=== PATIENT | male | born 1945 ===

== ENCOUNTER 2023-08-02 16:13 | Inpatient (IN) | payer MEDICAID ==
[~2023-08-02] VITALS: Ht 193 cm; Wt 74.8 kg
[2023-08-02] MEDS ORDERED: IV NORMAL SALINE 1000 ML BAG IV ONE (16:30)
[2023-08-02] MEDS ORDERED: VANCOMYCIN IV 1,000 MG in IV DEXTROSE 5% 250 ML IV ONE (16:30)
[2023-08-02] MEDS ORDERED: PIPERACILLIN SODIUM/TAZOBACTAM 3.375 G in IV DEXTROSE 5% 50 ML IV ONE (16:30)
[2023-08-02 16:56] LABS: BASOPHILS % (AUTO) 0.7 % (0.0-2.0); EOSINOPHILS % (AUTO) 0.3 % (0.0-7.0); HEMATOCRIT 44.2 % (36.7-47.1); HEMOGLOBIN 14.1 g/dL (12.5-16.3); LYMPHOCYTES # (AUTO) 1.1 K/uL (0.8-4.8); LYMPHOCYTES % (AUTO) 22.1 % (20.5-51.5); MEAN CORPUSCULAR HEMOGLOBIN 28.2 uug (23.8-33.4); MEAN CORPUSCULAR HGB CONC 32 g/dL (32.5-36.3); MEAN CORPUSCULAR VOLUME 88.5 fL (73.0-96.2); MONOCYTES # (AUTO) 0.5 K/uL (0.1-1.30); MONOCYTES % (AUTO) 9.4 % (0.0-11.0); NEUTROPHILS # (AUTO) 3.3 K/uL (1.8-8.9); NEUTROPHILS % (AUTO) 67.5 % (38.5-71.5); PLATELET COUNT (AUTO) 99 K/uL (152-348); RED CELL DISTRIBUTION WIDTH 18.7 % (12.1-16.2); WHITE BLOOD COUNT (AUTO) 4.9 K/uL (3.6-10.2)
[2023-08-02 16:59] LABS: DIFFERENTIAL COMMENT 1
[2023-08-02] MEDS ORDERED: VANCOMYCIN IV 200 ML ONE (17:00)
[2023-08-02] MEDS ORDERED: PIPERACILLIN/TAZOBACTAM/D5W 50 ML IV ONE (17:00)
[2023-08-02 17:12] LABS: ALANINE AMINOTRANSFERASE 113 U/L (16-63); ALKALINE PHOSPHATASE 105 U/L (50-136); ASPARTATE AMINOTRANSFERASE 117 U/L (15-37); BILIRUBIN,DIRECT 1.4 mg/dL (0.0-0.2); BILIRUBIN,TOTAL 3.7 mg/dL (0.2-1.0); CALCIUM 9.4 mg/dL (8.5-10.1); CARBON DIOXIDE 24 mmol/L (21-32); CHLORIDE 103 mmol/L (98-107); CREATININE 1.7 mg/dL (0.6-1.3); GLUCOSE 102 mg/dL (74-106); POTASSIUM 4.1 mmol/L (3.5-5.1); SODIUM SERUM 138 mmol/L (136-145); UREA NITROGEN, BLOOD 48 mg/dL (7-18)
[2023-08-02 17:24] LABS: LACTIC ACID 2.8 mmol/L (0.4-2.0)
[2023-08-02] MEDS ORDERED: METOPROLOL TARTRATE 5 MG/5 ML VIAL IVP PRN (17:45)
[2023-08-02] MEDS ORDERED: ASPIRIN 81 MG TAB.CHEW PO ONE (18:00)
[2023-08-02] MEDS ORDERED: METOPROLOL TARTRATE 5 MG/5 ML VIAL IVP ONE (18:06)
[2023-08-02] MEDS ORDERED: ACETAMINOPHEN 325 MG TABLET PO PRN (21:30)
[2023-08-02] MEDS ORDERED: ONDANSETRON 4 MG/2 ML VIAL IV PRN (21:30)
[2023-08-02] MEDS ORDERED: VANCOMYCIN IV 500 MG in IV DEXTROSE 5% 100 ML IV ONE (21:45)
[2023-08-02 22:00] VITALS: BP 130/89; TEMP 96.8; O2SAT 97
[2023-08-02] MEDS: MORPHINE SULFATE 2 MG/1 ML DISP.SYRIN IV PRN (22:53)
[2023-08-02] MEDS ORDERED: VANCOMYCIN HCL 500 MG VIAL ONE (23:08)
[2023-08-03] MEDS ORDERED: PIPERACILLIN/TAZOBACTAM/D5W 50 ML ONE ×2 (00:50→00:51)
[2023-08-03] MEDS: PIPERACILLIN/TAZO 2.25 G in IV DEXTROSE 5% 50 ML IV SCH ×5 (00:55→23:03)
[2023-08-03 02:27] VITALS: BP 142/97; TEMP 96.7; O2SAT 95
[2023-08-03 04:00] VITALS: BP 142/94; TEMP 97.5; O2SAT 95
[2023-08-03 06:08] LABS: BASOPHILS % (AUTO) 0.7 % (0.0-2.0); EOSINOPHILS % (AUTO) 0.1 % (0.0-7.0); HEMATOCRIT 45.4 % (36.7-47.1); HEMOGLOBIN 14.8 g/dL (12.5-16.3); LYMPHOCYTES # (AUTO) 1.4 K/uL (0.8-4.8); LYMPHOCYTES % (AUTO) 25.8 % (20.5-51.5); MEAN CORPUSCULAR HGB CONC 33 g/dL (32.5-36.3); MEAN CORPUSCULAR VOLUME 88.5 fL (73.0-96.2); MONOCYTES # (AUTO) 0.6 K/uL (0.1-1.30); MONOCYTES % (AUTO) 11.9 % (0.0-11.0); NEUTROPHILS # (AUTO) 3.2 K/uL (1.8-8.9); NEUTROPHILS % (AUTO) 61.5 % (38.5-71.5); PLATELET COUNT (AUTO) 101 K/uL (152-348); RED BLOOD CELL COUNT(AUTO) 5.12 MIL/uL (4.06-5.63); RED CELL DISTRIBUTION WIDTH 18.8 % (12.1-16.2); WHITE BLOOD COUNT (AUTO) 5.3 K/uL (3.6-10.2)
[2023-08-03 06:22] LABS: DIFFERENTIAL COMMENT 1
[2023-08-03] MEDS: PANTOPRAZOLE SODIUM 40 MG TABLET.DR PO SCH (06:25)
[2023-08-03 06:32] LABS: IRON, SERUM 28 ug/dL (50-175)
[2023-08-03 06:34] LABS: ALANINE AMINOTRANSFERASE 144 U/L (16-63); ALBUMIN 3.2 g/dL (3.4-5.0); ALKALINE PHOSPHATASE 125 U/L (50-136); ASPARTATE AMINOTRANSFERASE 150 U/L (15-37); BILIRUBIN,TOTAL 3.3 mg/dL (0.2-1.0); CALCIUM 8.9 mg/dL (8.5-10.1); CARBON DIOXIDE 23 mmol/L (21-32); CHLORIDE 103 mmol/L (98-107); CHOLESTEROL 197 mg/dL (<200); CREATININE 1.7 mg/dL (0.6-1.3); GLUCOSE 114 mg/dL (74-106); HDL CHOLESTEROL 66 mg/dL (40-60); MAGNESIUM 2.3 mg/dL (1.8-2.4); PHOSPHOROUS 4.3 mg/dL (2.5-4.9); POTASSIUM 4.1 mmol/L (3.5-5.1); SODIUM SERUM 140 mmol/L (136-145); TOTAL PROTEIN, SERUM 7.6 g/dL (6.4-8.2); TRIGLYCERIDES 73 MG/DL (30-150); UREA NITROGEN, BLOOD 49 mg/dL (7-18)
[2023-08-03] MEDS ORDERED: HEPARIN SODIUM,PORCINE 5,000 UNITS/ML VIAL SQ SCH (09:00)
[2023-08-03] MEDS ORDERED: FUROSEMIDE 20 MG/2 ML VIAL IV SCH (09:00)
[2023-08-03] MEDS ORDERED: AMIODARONE HCL IV 150 MG in IV DEXTROSE 5% 100 ML IV ONE (09:00)
[2023-08-03] MEDS ORDERED: HEPARIN/D5W DRIP 500 ML IV PRN (09:00)
[2023-08-03] MEDS ORDERED: AMIODARONE HCL IV 450 MG in IV DEXTROSE 5% 250 ML IV PRN (09:00)
[2023-08-03] MEDS ORDERED: ASPIRIN EC 81 MG TABLET.DR PO SCH (09:00)
[2023-08-03 09:41] LABS: ABG BASE EXCESS -1.9 mmol/L; ABG HCO3 21.7 mmol/L; ABG PCO2 33.6 mmHg (35.0-45.0); ABG PH 7.427 (7.350-7.450); ABG PO2 62.5 mmHg (75.0-100.0); ABG SITE RIGHT RADIAL; COHb 1.1 % (0.5-1.5); MetHb 0.3 % (0.0-1.5); O2Hb 90.4 % (94.0-97.0)
[2023-08-03] MEDS: METOPROLOL TARTRATE 50 MG TABLET PO SCH ×2 (10:21→20:23)
[2023-08-03] MEDS: VANCOMYCIN IV 1,250 MG in IV DEXTROSE 5% 250 ML IV SCH (11:33)
[2023-08-03 12:00] VITALS: BP 103/74; TEMP 98; O2SAT 98
[2023-08-03] MEDS: FUROSEMIDE 20 MG/2 ML VIAL IV SCH ×2 (13:51→21:44)
[2023-08-03 16:00] VITALS: O2SAT 98
[2023-08-03 16:01] VITALS: BP 109/89; TEMP 98.4; O2SAT 100
[2023-08-03 20:00] VITALS: BP 101/75; TEMP 97.9; O2SAT 99
[2023-08-03] MEDS: DOCUSATE SODIUM 100 MG CAPSULE PO SCH (20:28)
[2023-08-03] MEDS ORDERED: DOCUSATE SODIUM 250 MG CAPSULE PO SCH (21:00)
[2023-08-03 22:23] LABS: *BILIRUBIN,URIN NEGATIVE (NEGATIVE); *BLOOD, URINE 1+ (NEGATIVE); *CLARITY,URINE CLEAR (CLEAR); *COLOR,URINE YELLOW (YELLOW); *KETONES,URINE NEGATIVE (NEGATIVE); *PROTEIN,URINE 2+ (NEGATIVE); *UROBILINOGEN,URINE 0.2 E.U./dl (NORMAL); LEUKOCYTE ESTERASE ,URINE NEGATIVE (NEGATIVE); NITRITE, URINE NEGATIVE (NEGATIVE); UGLUCOSE NEGATIVE (NEGATIVE)
[2023-08-03 22:55] LABS: WBC,URINE NONE SEEN /HPF (0-3)
[2023-08-03 22:56] LABS: BACTERIA,URINE NONE SEEN /HPF (NONE SEEN); SQUAMOUS EPITHELIAL CELL,UR NONE SEEN /HPF (NONE SEEN)
[2023-08-03 23:28] LABS: *CREATININE,URINE 58.4 mg/dL (30-125); *URINE TOTAL PROTEIN RANDOM 69.7 mg/dL (<150/24HR)
[2023-08-04] MEDS: MORPHINE SULFATE 2 MG/1 ML DISP.SYRIN IV PRN (00:59)
[2023-08-04 03:55] VITALS: O2SAT 99
[2023-08-04 04:00] VITALS: BP 110/78; TEMP 97.9; O2SAT 98
[2023-08-04] MEDS: PIPERACILLIN/TAZO 2.25 G in IV DEXTROSE 5% 50 ML IV SCH (05:41)
[2023-08-04] MEDS: FUROSEMIDE 20 MG/2 ML VIAL IV SCH ×3 (06:06→22:31)
[2023-08-04] MEDS: VANCOMYCIN IV 1,250 MG in IV DEXTROSE 5% 250 ML IV SCH (06:18)
[2023-08-04] MEDS: PANTOPRAZOLE SODIUM 40 MG TABLET.DR PO SCH (07:02)
[2023-08-04 07:27] LABS: BASOPHILS % (AUTO) 0.6 % (0.0-2.0); HEMATOCRIT 43.3 % (36.7-47.1); LYMPHOCYTES # (AUTO) 0.9 K/uL (0.8-4.8); LYMPHOCYTES % (AUTO) 18.3 % (20.5-51.5); MEAN CORPUSCULAR HEMOGLOBIN 28.7 uug (23.8-33.4); MEAN CORPUSCULAR HGB CONC 32 g/dL (32.5-36.3); MEAN CORPUSCULAR VOLUME 89.1 fL (73.0-96.2); MONOCYTES # (AUTO) 0.5 K/uL (0.1-1.30); MONOCYTES % (AUTO) 10.4 % (0.0-11.0); NEUTROPHILS # (AUTO) 3.6 K/uL (1.8-8.9); NEUTROPHILS % (AUTO) 70.7 % (38.5-71.5); PLATELET COUNT (AUTO) 86 K/uL (152-348); RED BLOOD CELL COUNT(AUTO) 4.86 MIL/uL (4.06-5.63); RED CELL DISTRIBUTION WIDTH 18.7 % (12.1-16.2); WHITE BLOOD COUNT (AUTO) 5.1 K/uL (3.6-10.2)
[2023-08-04 07:42] LABS: DIFFERENTIAL COMMENT 1
[2023-08-04 07:48] LABS: ALANINE AMINOTRANSFERASE 153 U/L (16-63); ALBUMIN 2.6 g/dL (3.4-5.0); ALKALINE PHOSPHATASE 90 U/L (50-136); ASPARTATE AMINOTRANSFERASE 152 U/L (15-37); BILIRUBIN,TOTAL 2.5 mg/dL (0.2-1.0); CALCIUM 8.6 mg/dL (8.5-10.1); CARBON DIOXIDE 25 mmol/L (21-32); CHLORIDE 104 mmol/L (98-107); CREATINE KINASE, TOTAL 96 U/L (39-308); CREATININE 1.9 mg/dL (0.6-1.3); GLUCOSE 81 mg/dL (74-106); MAGNESIUM 2.3 mg/dL (1.8-2.4); POTASSIUM 4.4 mmol/L (3.5-5.1); SODIUM SERUM 139 mmol/L (136-145); TOTAL PROTEIN, SERUM 6.6 g/dL (6.4-8.2); UREA NITROGEN, BLOOD 54 mg/dL (7-18)
[2023-08-04 08:00] VITALS: BP 119/89; TEMP 97.6; O2SAT 99
[2023-08-04] MEDS ORDERED: ASPIRIN EC 81 MG TABLET.DR PO SCH (09:00)
[2023-08-04] MEDS: METOPROLOL SUCCINATE XL 50 MG TAB.SR.24H PO SCH ×2 (09:05→21:33)
[2023-08-04] MEDS: MUPIROCIN 2% OINT 22 GM TUBE TP SCH (09:06)
[2023-08-04] MEDS: SODIUM HYPOCHLORITE 0.125% (QUARTER STRENGTH) 473 ML BOTTLE TP SCH (09:06)
[2023-08-04 11:30] VITALS: BP 107/84; TEMP 97.4; O2SAT 98
[2023-08-04] MEDS: CEFEPIME HCL 2 G in IV DEXTROSE 5% 100 ML IV SCH (12:44)
[2023-08-04] MEDS: HYDROCODONE/APAP 5-325MG TABLET PO PRN (13:34)
[2023-08-04 16:23] VITALS: BP 99/78; TEMP 97.6; O2SAT 94
[2023-08-04 20:00] VITALS: BP 128/82; TEMP 97.7; O2SAT 95
[2023-08-04] MEDS: DOCUSATE SODIUM 100 MG CAPSULE PO SCH (21:29)
[2023-08-04] MEDS: MUPIROCIN 2% OINT 22 GM TUBE NS SCH (21:52)
[2023-08-05] VITALS: BP 119/95; TEMP 97.5; O2SAT 96
[2023-08-05] MEDS: CEFEPIME HCL 2 G in IV DEXTROSE 5% 100 ML IV SCH ×3 (00:08→23:01)
[2023-08-05] MEDS: VANCOMYCIN IV 1,250 MG in IV DEXTROSE 5% 250 ML IV SCH (05:46)
[2023-08-05] MEDS: PANTOPRAZOLE SODIUM 40 MG TABLET.DR PO SCH (06:17)
[2023-08-05 07:13] LABS: BASOPHILS % (AUTO) 0.3 % (0.0-2.0); EOSINOPHILS % (AUTO) 0.1 % (0.0-7.0); HEMATOCRIT 40.6 % (36.7-47.1); HEMOGLOBIN 13.3 g/dL (12.5-16.3); LYMPHOCYTES # (AUTO) 0.7 K/uL (0.8-4.8); LYMPHOCYTES % (AUTO) 14.8 % (20.5-51.5); MEAN CORPUSCULAR HEMOGLOBIN 28.7 uug (23.8-33.4); MEAN CORPUSCULAR HGB CONC 33 g/dL (32.5-36.3); MEAN CORPUSCULAR VOLUME 87.8 fL (73.0-96.2); MONOCYTES # (AUTO) 0.6 K/uL (0.1-1.30); MONOCYTES % (AUTO) 12.9 % (0.0-11.0); NEUTROPHILS # (AUTO) 3.4 K/uL (1.8-8.9); NEUTROPHILS % (AUTO) 71.9 % (38.5-71.5); PLATELET COUNT (AUTO) 97 K/uL (152-348); RED BLOOD CELL COUNT(AUTO) 4.62 MIL/uL (4.06-5.63); RED CELL DISTRIBUTION WIDTH 18.7 % (12.1-16.2); WHITE BLOOD COUNT (AUTO) 4.7 K/uL (3.6-10.2)
[2023-08-05 07:16] LABS: CALCIUM 8.2 mg/dL (8.5-10.1); CARBON DIOXIDE 29 mmol/L (21-32); CHLORIDE 103 mmol/L (98-107); CREATININE 1.8 mg/dL (0.6-1.3); GLUCOSE 113 mg/dL (74-106); MAGNESIUM 1.9 mg/dL (1.8-2.4); PHOSPHOROUS 3.5 mg/dL (2.5-4.9); POTASSIUM 3.4 mmol/L (3.5-5.1); SODIUM SERUM 141 mmol/L (136-145); UREA NITROGEN, BLOOD 49 mg/dL (7-18)
[2023-08-05 07:22] LABS: DIFFERENTIAL COMMENT 1
[2023-08-05] MEDS: FUROSEMIDE 20 MG/2 ML VIAL IV SCH ×3 (07:29→22:49)
[2023-08-05 07:51] VITALS: BP 119/78; TEMP 98.2; O2SAT 93
[2023-08-05 08:06] LABS: A/G RATIO 0.9 (0.7-1.7); ALBUMIN 3.1 g/dL (2.9-4.4); ALPHA-1-GLOBULIN 0.3 g/dL (0.0-0.4); ALPHA-2-GLOBULIN 0.6 g/dL (0.4-1.0); BETA GLOBULIN 1.2 g/dL (0.7-1.3); GAMMA GLOBULIN 1.5 g/dL (0.4-1.8); GLOBULIN, TOTAL 3.5 g/dL (2.2-3.9); M-SPIKE 0.3 g/dL (Not Observed)
[2023-08-05] MEDS: MUPIROCIN 2% OINT 22 GM TUBE NS SCH ×2 (08:25→20:47)
[2023-08-05] MEDS: METOPROLOL SUCCINATE XL 50 MG TAB.SR.24H PO SCH ×2 (08:25→20:37)
[2023-08-05] MEDS: SODIUM HYPOCHLORITE 0.125% (QUARTER STRENGTH) 473 ML BOTTLE TP SCH (08:26)
[2023-08-05] MEDS: HYDROCODONE/APAP 5-325MG TABLET PO PRN (08:26)
[2023-08-05] MEDS: MUPIROCIN 2% OINT 22 GM TUBE TP SCH (08:26)
[2023-08-05] MEDS ORDERED: POTASSIUM CHLORIDE 20 MEQ POWDER PACKET GT ONE (08:45)
[2023-08-05] MEDS ORDERED: POTASSIUM CHLORIDE 20 MEQ TAB.PRT.SR PO ONE (09:00)
[2023-08-05] MEDS: APIXABAN 2.5 MG TABLET PO SCH ×2 (09:23→20:37)
[2023-08-05 11:34] VITALS: BP 115/95; TEMP 97.7; O2SAT 92
[2023-08-05 16:00] VITALS: BP 110/86; TEMP 97.4; O2SAT 94
[2023-08-05] MEDS ORDERED: SWABABLE VALVE TRANSFER SET EA MC ONE (16:52)
[2023-08-05] MEDS ORDERED: IOHEXOL 350 100 ML INFUS..BTL ONE (16:52)
[2023-08-05] MEDS ORDERED: IV NORMAL SALINE 250 ML IV ONE (16:53)
[2023-08-05] MEDS: DOCUSATE SODIUM 100 MG CAPSULE PO SCH (20:36)
[2023-08-05 22:11] VITALS: BP 109/86; TEMP 97.4; O2SAT 98
[2023-08-06 00:23] VITALS: TEMP 95.6
[2023-08-06 04:00] VITALS: TEMP 96.4
[2023-08-06] MEDS: VANCOMYCIN IV 1,250 MG in IV DEXTROSE 5% 250 ML IV SCH (05:34)
[2023-08-06] MEDS: FUROSEMIDE 20 MG/2 ML VIAL IV SCH ×3 (06:11→22:41)
[2023-08-06] MEDS: PANTOPRAZOLE SODIUM 40 MG TABLET.DR PO SCH (06:11)
[2023-08-06 07:08] LABS: BASOPHILS % (AUTO) 0.4 % (0.0-2.0); HEMATOCRIT 41.4 % (36.7-47.1); HEMOGLOBIN 13.5 g/dL (12.5-16.3); LYMPHOCYTES # (AUTO) 0.8 K/uL (0.8-4.8); LYMPHOCYTES % (AUTO) 17.6 % (20.5-51.5); MEAN CORPUSCULAR HEMOGLOBIN 28.7 uug (23.8-33.4); MEAN CORPUSCULAR HGB CONC 33 g/dL (32.5-36.3); MEAN CORPUSCULAR VOLUME 87.8 fL (73.0-96.2); MONOCYTES # (AUTO) 0.6 K/uL (0.1-1.30); MONOCYTES % (AUTO) 13.2 % (0.0-11.0); NEUTROPHILS # (AUTO) 3.2 K/uL (1.8-8.9); NEUTROPHILS % (AUTO) 68.8 % (38.5-71.5); PLATELET COUNT (AUTO) 115 K/uL (152-348); RED BLOOD CELL COUNT(AUTO) 4.72 MIL/uL (4.06-5.63); RED CELL DISTRIBUTION WIDTH 18.6 % (12.1-16.2); WHITE BLOOD COUNT (AUTO) 4.6 K/uL (3.6-10.2)
[2023-08-06 07:14] LABS: DIFFERENTIAL COMMENT 1
[2023-08-06] MEDS: APIXABAN 2.5 MG TABLET PO SCH ×3 (09:00→21:23)
[2023-08-06] MEDS: METOPROLOL SUCCINATE XL 50 MG TAB.SR.24H PO SCH ×2 (10:01→21:21)
[2023-08-06] MEDS: MUPIROCIN 2% OINT 22 GM TUBE NS SCH ×2 (10:01→21:19)
[2023-08-06] MEDS: MUPIROCIN 2% OINT 22 GM TUBE TP SCH (10:17)
[2023-08-06] MEDS: SODIUM HYPOCHLORITE 0.125% (QUARTER STRENGTH) 473 ML BOTTLE TP SCH (10:44)
[2023-08-06 11:24] VITALS: BP 101/66; TEMP 97.9; O2SAT 96
[2023-08-06] MEDS: CEFEPIME HCL 2 G in IV DEXTROSE 5% 100 ML IV SCH ×2 (12:01→23:02)
[2023-08-06 16:00] VITALS: BP 105/73; TEMP 97.7; O2SAT 95
[2023-08-06 20:30] VITALS: BP 111/73; TEMP 97.5; O2SAT 94
[2023-08-06] MEDS: DOCUSATE SODIUM 100 MG CAPSULE PO SCH (21:20)
[2023-08-07] VITALS: BP 115/90; TEMP 97.6; O2SAT 99
[2023-08-07] MEDS: FUROSEMIDE 20 MG/2 ML VIAL IV SCH (05:36)
[2023-08-07 06:03] LABS: BASOPHILS % (AUTO) 0.4 % (0.0-2.0); EOSINOPHILS % (AUTO) 0.4 % (0.0-7.0); HEMATOCRIT 44.1 % (36.7-47.1); HEMOGLOBIN 14.6 g/dL (12.5-16.3); LYMPHOCYTES # (AUTO) 0.8 K/uL (0.8-4.8); LYMPHOCYTES % (AUTO) 18.4 % (20.5-51.5); MEAN CORPUSCULAR HEMOGLOBIN 29.2 uug (23.8-33.4); MEAN CORPUSCULAR HGB CONC 33 g/dL (32.5-36.3); MEAN CORPUSCULAR VOLUME 88.1 fL (73.0-96.2); MONOCYTES # (AUTO) 0.5 K/uL (0.1-1.30); MONOCYTES % (AUTO) 12.6 % (0.0-11.0); NEUTROPHILS # (AUTO) 2.8 K/uL (1.8-8.9); NEUTROPHILS % (AUTO) 68.2 % (38.5-71.5); PLATELET COUNT (AUTO) 150 K/uL (152-348); RED BLOOD CELL COUNT(AUTO) 5.01 MIL/uL (4.06-5.63); RED CELL DISTRIBUTION WIDTH 19.1 % (12.1-16.2); WHITE BLOOD COUNT (AUTO) 4.1 K/uL (3.6-10.2)
[2023-08-07 06:04] LABS: DIFFERENTIAL COMMENT 1
[2023-08-07] MEDS: PANTOPRAZOLE SODIUM 40 MG TABLET.DR PO SCH (06:04)
[2023-08-07 06:40] LABS: CALCIUM 8.7 mg/dL (8.5-10.1); CREATININE 1.2 mg/dL (0.6-1.3); POTASSIUM 3.2 mmol/L (3.5-5.1); VANCOMYCIN,TROUGH 19.8 ug/mL (10.0-20.0)
[2023-08-07 06:45] VITALS: BP 156/90; TEMP 99; O2SAT 95
[2023-08-07] MEDS: APIXABAN 2.5 MG TABLET PO SCH ×2 (08:09→22:17)
[2023-08-07] MEDS: METOPROLOL SUCCINATE XL 50 MG TAB.SR.24H PO SCH ×2 (08:10→21:00)
[2023-08-07] MEDS: MUPIROCIN 2% OINT 22 GM TUBE TP SCH (08:18)
[2023-08-07] MEDS: MUPIROCIN 2% OINT 22 GM TUBE NS SCH ×2 (08:18→22:16)
[2023-08-07] MEDS: SODIUM HYPOCHLORITE 0.125% (QUARTER STRENGTH) 473 ML BOTTLE TP SCH (08:18)
[2023-08-07] MEDS: VANCOMYCIN IV 1,250 MG in IV DEXTROSE 5% 250 ML IV SCH (08:46)
[2023-08-07] MEDS ORDERED: POTASSIUM CHLORIDE 20 MEQ TAB.PRT.SR PO ONE (10:45)
[2023-08-07 10:50] LABS: POTASSIUM 3.6 mmol/L (3.5-5.1)
[2023-08-07 11:51] VITALS: BP 103/61; TEMP 98.1; O2SAT 97
[2023-08-07] MEDS: SPIRONOLACTONE 25 MG TABLET PO SCH (15:00)
[2023-08-07 15:59] VITALS: BP 115/67; TEMP 97.5; O2SAT 98
[2023-08-07 20:00] VITALS: BP 101/79; TEMP 98; O2SAT 97
[2023-08-07] MEDS: DOCUSATE SODIUM 100 MG CAPSULE PO SCH (22:16)
[2023-08-08] VITALS: BP 100/76; TEMP 98.2; O2SAT 95
[2023-08-08 04:30] VITALS: BP 112/68; TEMP 97.6; O2SAT 96
[2023-08-08] MEDS: PANTOPRAZOLE SODIUM 40 MG TABLET.DR PO SCH (06:06)
[2023-08-08 07:32] LABS: CARBON DIOXIDE 33 mmol/L (21-32); CHLORIDE 102 mmol/L (98-107); CREATININE 1.2 mg/dL (0.6-1.3); GLUCOSE 98 mg/dL (74-106); POTASSIUM 3.4 mmol/L (3.5-5.1); SODIUM SERUM 141 mmol/L (136-145); UREA NITROGEN, BLOOD 30 mg/dL (7-18)
[2023-08-08] MEDS: METOPROLOL SUCCINATE XL 50 MG TAB.SR.24H PO SCH ×2 (09:00→21:10)
[2023-08-08] MEDS ORDERED: POTASSIUM CHLORIDE 20 MEQ POWDER PACKET GT ONE (09:30)
[2023-08-08] MEDS ORDERED: POTASSIUM CHLORIDE 20 MEQ TAB.PRT.SR PO ONE (09:30)
[2023-08-08] MEDS: MUPIROCIN 2% OINT 22 GM TUBE NS SCH ×2 (09:32→21:17)
[2023-08-08] MEDS: SODIUM HYPOCHLORITE 0.125% (QUARTER STRENGTH) 473 ML BOTTLE TP SCH (09:34)
[2023-08-08] MEDS: SPIRONOLACTONE 25 MG TABLET PO SCH (09:34)
[2023-08-08] MEDS: MUPIROCIN 2% OINT 22 GM TUBE TP SCH (09:35)
[2023-08-08] MEDS: VANCOMYCIN IV 1,250 MG in IV DEXTROSE 5% 250 ML IV SCH (09:46)
[2023-08-08] MEDS: APIXABAN 5 MG TABLET PO SCH ×2 (09:47→21:11)
[2023-08-08] MEDS: BUMETANIDE 1 MG TABLET PO SCH (09:47)
[2023-08-08 11:48] VITALS: BP 94/70; TEMP 97.6; O2SAT 96
[2023-08-08 13:54] LABS: ALBUMIN 2.1 g/dL (3.4-5.0); BILIRUBIN,DIRECT 0.6 mg/dL (0.0-0.2); BILIRUBIN,TOTAL 1.4 mg/dL (0.2-1.0); TOTAL PROTEIN, SERUM 6.2 g/dL (6.4-8.2)
[2023-08-08] MEDS ORDERED: CEFEPIME HCL 1 G in IV DEXTROSE 5% 50 ML IV SCH (15:15)
[2023-08-08 17:04] VITALS: BP 116/78; TEMP 97.8; O2SAT 96
[2023-08-08 20:00] VITALS: BP 127/88; TEMP 98.6; O2SAT 98
[2023-08-08] MEDS ORDERED: APIXABAN 2.5 MG TABLET PO SCH (21:00)
[2023-08-08] MEDS: DOCUSATE SODIUM 100 MG CAPSULE PO SCH (21:09)
[2023-08-08] MEDS: CEFEPIME HCL 1 G in IV DEXTROSE 5% 50 ML IV SCH (21:13)
[2023-08-09] VITALS: BP 96/50; TEMP 98.4; O2SAT 97
[2023-08-09 04:00] VITALS: BP 121/92; TEMP 97.5; O2SAT 95
[2023-08-09] MEDS: PANTOPRAZOLE SODIUM 40 MG TABLET.DR PO SCH (06:06)
[2023-08-09 07:04] LABS: BASOPHILS % (AUTO) 0.7 % (0.0-2.0); EOSINOPHILS % (AUTO) 0.5 % (0.0-7.0); HEMATOCRIT 43.1 % (36.7-47.1); HEMOGLOBIN 14.1 g/dL (12.5-16.3); LYMPHOCYTES # (AUTO) 1.2 K/uL (0.8-4.8); MEAN CORPUSCULAR HEMOGLOBIN 28.7 uug (23.8-33.4); MEAN CORPUSCULAR HGB CONC 33 g/dL (32.5-36.3); MEAN CORPUSCULAR VOLUME 88.1 fL (73.0-96.2); MONOCYTES # (AUTO) 0.5 K/uL (0.1-1.30); NEUTROPHILS # (AUTO) 2.4 K/uL (1.8-8.9); NEUTROPHILS % (AUTO) 57.8 % (38.5-71.5); PLATELET COUNT (AUTO) 194 K/uL (152-348); RED CELL DISTRIBUTION WIDTH 18.5 % (12.1-16.2); WHITE BLOOD COUNT (AUTO) 4.1 K/uL (3.6-10.2)
[2023-08-09 07:21] LABS: ALANINE AMINOTRANSFERASE 56 U/L (16-63); ALBUMIN 2.3 g/dL (3.4-5.0); ALKALINE PHOSPHATASE 79 U/L (50-136); ASPARTATE AMINOTRANSFERASE 32 U/L (15-37); BILIRUBIN,TOTAL 1.6 mg/dL (0.2-1.0); CALCIUM 8.5 mg/dL (8.5-10.1); CARBON DIOXIDE 38 mmol/L (21-32); CHLORIDE 102 mmol/L (98-107); CREATININE 1.2 mg/dL (0.6-1.3); DIFFERENTIAL COMMENT 1; GLUCOSE 96 mg/dL (74-106); MAGNESIUM 1.8 mg/dL (1.8-2.4); PHOSPHOROUS 2.8 mg/dL (2.5-4.9); POTASSIUM 4.6 mmol/L (3.5-5.1); SODIUM SERUM 142 mmol/L (136-145); TOTAL PROTEIN, SERUM 6.8 g/dL (6.4-8.2); UREA NITROGEN, BLOOD 28 mg/dL (7-18)
[2023-08-09] MEDS: APIXABAN 5 MG TABLET PO SCH ×2 (09:43→20:57)
[2023-08-09] MEDS: MUPIROCIN 2% OINT 22 GM TUBE NS SCH ×2 (09:43→20:56)
[2023-08-09] MEDS: SODIUM HYPOCHLORITE 0.125% (QUARTER STRENGTH) 473 ML BOTTLE TP SCH (09:48)
[2023-08-09] MEDS: CEFEPIME HCL 1 G in IV DEXTROSE 5% 50 ML IV SCH ×2 (09:49→20:54)
[2023-08-09] MEDS: SPIRONOLACTONE 25 MG TABLET PO SCH (09:49)
[2023-08-09] MEDS: METOPROLOL SUCCINATE XL 50 MG TAB.SR.24H PO SCH ×2 (09:55→20:57)
[2023-08-09] MEDS: BUMETANIDE 1 MG TABLET PO SCH (09:56)
[2023-08-09] MEDS: MUPIROCIN 2% OINT 22 GM TUBE TP SCH (09:57)
[2023-08-09] MEDS: VANCOMYCIN IV 1,250 MG in IV DEXTROSE 5% 250 ML IV SCH (11:56)
[2023-08-09 12:04] VITALS: BP 106/86; TEMP 98.1; O2SAT 99
[2023-08-09 20:00] VITALS: BP 107/82; TEMP 98.1; O2SAT 95
[2023-08-09] MEDS: DOCUSATE SODIUM 100 MG CAPSULE PO SCH (20:55)
[2023-08-09] MEDS: HYDROCODONE/APAP 5-325MG TABLET PO PRN (20:59)
[2023-08-10] VITALS (8 sets, daily range): BP systolic 105–112; BP diastolic 49–88; TEMP 97.6–98; O2SAT 95–98
[2023-08-10] MEDS: PANTOPRAZOLE SODIUM 40 MG TABLET.DR PO SCH (06:10)
[2023-08-10] MEDS ORDERED: NEPRO (VANILLA) 237 ML CAN PO SCH (09:00)
[2023-08-10] MEDS: CEFEPIME HCL 1 G in IV DEXTROSE 5% 50 ML IV SCH (09:04)
[2023-08-10] MEDS: MUPIROCIN 2% OINT 22 GM TUBE NS SCH (09:05)
[2023-08-10] MEDS: METOPROLOL SUCCINATE XL 50 MG TAB.SR.24H PO SCH (09:14)
[2023-08-10] MEDS: SPIRONOLACTONE 25 MG TABLET PO SCH (09:14)
[2023-08-10] MEDS: MUPIROCIN 2% OINT 22 GM TUBE TP SCH (09:16)
[2023-08-10] MEDS ORDERED: SPIR25TA PO (11:19)
[2023-08-10] MEDS ORDERED: BUME1TAB8 PO (11:19)
[2023-08-10] MEDS ORDERED: HYDR-3972 PO (11:19)
[2023-08-10] MEDS ORDERED: PANT40TA49 PO (11:19)
[2023-08-10] MEDS ORDERED: EMPA25TA PO (11:19)
[2023-08-10] MEDS ORDERED: SACU1TAB PO (11:19)
[2023-08-10] MEDS ORDERED: APIX5TAB PO (11:19)
[2023-08-10] MEDS ORDERED: METO-357 PO (11:19)
[2023-08-10] MEDS ORDERED: DOXY-326 PO (11:27)
[2023-08-10] MEDS ORDERED: LEVO750T46 PO (11:27)
[2023-08-10] MEDS: APIXABAN 5 MG TABLET PO SCH (12:46)
[2023-08-10] MEDS: SODIUM HYPOCHLORITE 0.125% (QUARTER STRENGTH) 473 ML BOTTLE TP SCH (12:50)
[2023-08-10] MEDS: BUMETANIDE 1 MG TABLET PO SCH (15:17)
[2023-08-10] MEDS ORDERED: VANCOMYCIN IV 1,250 MG in IV DEXTROSE 5% 250 ML IV SCH (20:00)
== END 2023-08-10 20:30 | DRG 720 ==
LOC: ER 16:16 → TRANSITION 20:00 → TELE3 21:10 → TELE-TD3 08-03 09:10 → TELE3 08-05 10:10
PROVIDERS: ADMIT Internal Medicine; ATTEND Internal Medicine
DX: A41.9 Sepsis, unspecified organism (principal); N17.0 Acute kidney failure with tubular necrosis; I71.02 Dissection of abdominal aorta; I50.23 Acute on chronic systolic (congestive) heart failure; E44.0 Moderate protein-calorie malnutrition; E87.20 Acidosis, unspecified; E88.09 Other disorders of plasma-protein metabolism, not elsewhere classified; I42.0 Dilated cardiomyopathy; I48.20 Chronic atrial fibrillation, unspecified; I21.A1 Myocardial infarction type 2; L03.115 Cellulitis of right lower limb; L03.116 Cellulitis of left lower limb; M86.8X7 Other osteomyelitis, ankle and foot; E78.5 Hyperlipidemia, unspecified; K80.20 Calculus of gallbladder without cholecystitis without obstruction; M19.90 Unspecified osteoarthritis, unspecified site; N18.9 Chronic kidney disease, unspecified; Z79.01 Long term (current) use of anticoagulants; E80.6 Other disorders of bilirubin metabolism; J44.9 Chronic obstructive pulmonary disease, unspecified; Z74.09 Other reduced mobility; H54.7 Unspecified visual loss; M20.42 Other hammer toe(s) (acquired), left foot; M20.41 Other hammer toe(s) (acquired), right foot; I13.0 Hypertensive heart and chronic kidney disease with heart failure and stage 1 through stage 4 chronic kidney disease, or unspecified chronic kidney disease; I71.43 Infrarenal abdominal aortic aneurysm, without rupture; R74.01 Elevation of levels of liver transaminase levels; M77.32 Calcaneal spur, left foot; S90.32XA Contusion of left foot, initial encounter; X58.XXXA Exposure to other specified factors, initial encounter; Y93.9 Activity, unspecified; Y92.89 Other specified places as the place of occurrence of the external cause; S90.822A Blister (nonthermal), left foot, initial encounter; M10.9 Gout, unspecified; I08.1 Rheumatic disorders of both mitral and tricuspid valves; N28.1 Cyst of kidney, acquired; I73.9 Peripheral vascular disease, unspecified
CPT/HCPCS: 36415; 36600; 71045; 73630; 76700; 83550; 83605; 83690; 83735; 83970; 84100; 84155; 84165; 84300; 84443; 84484; 84550; 85025; 85610; 85651; 85730; 86140; 87040; 93005; 93307; A4663; G0378; J0282; J0692; J1644; J1940; J2270; J2543; J3370; J3490; J7040; J7050; Q9967